=== PATIENT | female | born 1955 | race Caucasian/White ===

== ENCOUNTER → 2016-09-20 | Outpatient (CLI) | payer BC ==
--- NOTE | 2016-09-20 16:38 | NM ---
EXAMINATION: Nuclear medicine myocardial perfusion study with exercise stress test. HISTORY: Chest pain. PROCEDURE: Patient exercised according to Tam protocol for 5 minutes and 11 seconds and achieved maximal hear t rate of 152 beats per minute. Adequate exercise. Following intravenous administration of 27.5 mCi of technetium 99m sestamibi, stress SPECT images in cluding gating imaging was performed. FINDINGS: Stress myocardial SPECT images demonstrates mild to moderately decreased perfusion along the anterio r wall from the base to midportion, this is most likely breast attenuation artifact. Review of gated images demonstrates normal wall motion, contractility and wall thickening. The left ventricular ejection fraction is 77 %. The left ventricular chamber size is normal. IMPRESSION: 1. Decreased perfusion along the anterior wall, most likely breast attenuation artifact. If suspicio n is high and confirmation is needed consider rest imaging. 2. Normal ventricular chamber size and function with ejection fraction of 77 %.
--- NOTE | 2016-09-21 10:32 | PCM.PRNOTE ---
- Free Text/Narrative Note: Exercise MIBI Indication CP Sestamibi Tc99 25 MCi was given at the peak HR Patient was brought to the stress test lab in postabsorptive state verbal and paper consent was obtained from patient Vital signs at resting state blood pressure of 134/84 with a heart rate of 118 EKG shows sinus tachycardia, ST depression 1 mm V3-V6 Maximal heart rate of 152 and target heart rate is 118 Patient reached the target heart rate, completed stage II Tam protocol Peak blood pressure is 154/84 Total exercise time of 5.[address] depression V4-V6 at a peak heart rate no arrhythmia METS 7 No symptom of chest pain or feeling dizzy Impression Normal hemodynamics, normal chronotropic, poor exercise capacity, negative for ischemia on EKG Plan Nuclear portion pending
== END ==
LOC: MW.NM 12:37
PROVIDERS: ATTEND Internal Medicine
DX: R07.9 Chest pain, unspecified (principal)
CPT/HCPCS: 78451; 78451-26; 93017; A9500

== ENCOUNTER → 2016-10-03 | Outpatient (CLI) | payer BC ==
--- NOTE | 2016-10-10 19:38 | ECHO ---
The echocardiogram report can be seen in this patient's EMR in the Reports section. ALONDRA
== END ==
LOC: MW.US 13:08
PROVIDERS: ATTEND Internal Medicine
DX: R07.9 Chest pain, unspecified (principal)
CPT/HCPCS: 93306

== ENCOUNTER → 2016-10-06 | Outpatient (CLI) | payer BC ==
--- NOTE | 2016-12-05 13:38 | NM ---
EXAM DATE: 10/06/16 PATIENT'S AGE: 61 Addendum: Additional images were obtained at rest following the administration of 27.5 mCi of technetium 99m labeled sestamibi. Findings/impression: The perfusion at rest is similar to the stress images with likely breast attenuation artifact anteriorly. The ejection fraction at rest is 70%. No evidence of myocardial ischemia. EXAMINATION: Nuclear medicine myocardial perfusion study with exercise stress test. HISTORY: Chest pain. PROCEDURE: Patient exercised according to Tam protocol for 5 minutes and 11 seconds and achieved maximal heart rate of 152 beats per minute. Adequate exercise. Following intravenous administration of 27.5 mCi of technetium 99m sestamibi, stress SPECT images including gating imaging was performed. FINDINGS: Stress myocardial SPECT images demonstrates mild to moderately decreased perfusion along the anterior wall from the base to midportion, this is most likely breast attenuation artifact. Review of gated images demonstrates normal wall motion, contractility and wall thickening. The left ventricular ejection fraction is 77 %. The left ventricular chamber size is normal. IMPRESSION: 1. Decreased perfusion along the anterior wall, most likely breast attenuation artifact. If suspicion is high and confirmation is needed consider rest imaging. 2. Normal ventricular chamber size and function with ejection fraction of 77 %. MTDD
== END ==
LOC: MW.NM 08:05
PROVIDERS: ATTEND Internal Medicine
DX: R07.9 Chest pain, unspecified (principal)
CPT/HCPCS: 78451; 78451-26

== ENCOUNTER 2016-10-16 07:42 | Day surgery (SDC) | payer BC ==
[~2016-10-16 07:42] MED LIST: Lactated Ringers 1,000 ML IV SCH; Lidocaine 2% 5 ML SDV ONE; Midazolam 1 MG/ML 2 ML SDV ONE; Propofol 200 MG/20 ML SDV ONE; fentaNYL 250 MCG/5 ML SDV ONE
[2016-10-16] MEDS ORDERED: Sodium Chloride 0.9% 10 ML Syringe FLUSH PRN (07:59)
[2016-10-16] MEDS ORDERED: Sodium Chloride 0.9% 2.5 ML Syringe FLUSH PRN (07:59)
[2016-10-16] MEDS ORDERED: Enoxaparin 40 MG/0.4 ML Syringe SUBCUT ONE (08:02)
--- NOTE | 2016-10-16 08:23 | PCM.PREANE ---
Preanesthetic Assessment - Anesthesia/Transfusion/Family Hx Anesthesia History: Prior Anesthesia Without Reaction Family History of Anesthesia Reaction: No Transfusion History: No Prior Transfusion(s) - Review of Systems General: No Symptoms Pulmonary: No Symptoms Cardiovascular: No Symptoms Gastrointestinal: No symptoms Neurological: No Symptoms Other: Reports: None - Physical Assessment NPO Status Date: 10/15/16 O2 Sat by Pulse Oximetry: 98 Respiratory Rate: 18 Vital Signs: Last Vital Signs Temp 36.8 C 10/16/16 08:14 Pulse 72 10/16/16 08:14 Resp 18 10/16/16 08:14 BP 156/88 H 10/16/16 08:14 Pulse Ox 98 10/16/16 08:14 Height: 1.73 m Weight: 121.109 kg ASA Class: 2 Mental Status: Alert & Oriented x3 Airway Class: Mallampati = 2 Dentition: Reports: Normal Dentition ROM/Head Extension: Full Lungs: Clear to auscultation, Normal respiratory effort Cardiovascular: Regular Rate, Regular Rhythm - Lab Values: Laboratory Last Values WBC 8.51 K/uL (4.0-11.0) 10/16/16 08:02 RBC 4.79 M/uL (4.30-5.90) 10/16/16 08:02 Hgb 14.5 g/dL (12.0-16.0) 10/16/16 08:02 Hct 43.1 % (36.0-46.0) 10/16/16 08:02 MCV 90.0 fL (80.0-98.0) 10/16/16 08:02 MCH 30.3 pg (27.0-32.0) 10/16/16 08:02 MCHC 33.6 g/dL (31.0-37.0) 10/16/16 08:02 RDW Std Deviation 41.2 fl (28.0-62.0) 10/16/16 08:02 RDW Coeff of Narda 13 % (11.0-15.0) 10/16/16 08:02 Plt Count 214 K/uL (150-400) 10/16/16 08:02 MPV 10.60 fL (7.40-12.00) 10/16/16 08:02 Neut % (Auto) 54.0 % (48.0-80.0) 10/16/16 08:02 Lymph % (Auto) 33.7 % (16.0-40.0) 10/16/16 08:02 Ponce % (Auto) 8.1 % (0.0-15.0) 10/16/16 08:02 Eos % (Auto) 3.6 % (0.0-7.0) 10/16/16 08:02 Baso % (Auto) 0.6 % (0.0-1.5) 10/16/16 08:02 Neut # (Auto) 4.6 K/uL (1.4-5.7) 10/16/16 08:02 Lymph # (Auto) 2.9 K/uL (0.6-2.4) H 10/16/16 08:02 Ponce # (Auto) 0.7 K/uL (0.0-0.8) 10/16/16 08:02 Eos # (Auto) 0.3 K/uL (0.0-0.7) 10/16/16 08:02 Baso # (Auto) 0.1 K/uL (0.0-0.1) 10/16/16 08:02 Nucleated RBC % 0.0 /100WBC 10/16/16 08:02 Nucleated RBCs # 0 K/uL 10/16/16 08:02 - Allergies Allergies/Adverse Reactions: Allergies Allergy/AdvReac Type Severity Reaction Status Date / Time Milk Containing Products Allergy Diarrhea Verified 10/11/16 11:33 Penicillins Allergy Rash Verified 10/11/16 11:33 - Acknowledgements Anesthesia Type Planned: General Anesthesia Pt an Appropriate Candidate for the Planned Anesthesia: Yes Alternatives and Risks of Anesthesia Discussed w Pt/Guardian: Yes Pt/Guardian Understands and Agrees with Anesthesia Plan: Yes PreAnesthesia Questionnaire HEENT History: Reports: Impaired vision Other HEENT History: wears 1 contact Cardiovascular History: Reports: Hypertension Respiratory History: Reports: PE Other Respiratory History: May 2016, recently stopped Elequis Gastrointestinal History: Reports: GERD Genitourinary History: Reports: None [employer] History: Reports: Ectopic , Musculoskeletal History: Reports: Arthritis Neurological History: Reports: None Psychiatric History: Reports: None Endocrine/Metabolic History: Reports: Hypothyroidism Other Hematologic History: protein C and S abnormalities, 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, on aspirin chronically Immunologic History: Reports: None Oncologic (Cancer) History: Reports: None Dermatologic History: Reports: None - Past Surgical History Head Surgeries/Procedures: Reports: None HEENT Surgical History: Reports: None Cardiovascular Surgical History: Reports: None Respiratory Surgical History: Reports: None GI Surgical History: Reports: Cholecystectomy Female Surgical History: Reports: Other (see below) Other Female Surgeries/Procedures: salpingectomy for ruptured ectopic Endocrine Surgical History: Reports: None Neurological Surgical History: Reports: None Musculoskeletal Surgical History: Reports: None Oncologic Surgical History: Reports: None Dermatological Surgical History: Reports: None - SUBSTANCE USE Smoking Status *Q: Never Smoker Tobacco Use Within Last Twelve Months: No Recreational Drug Use History: No - HOME MEDS Home Medications: Home Meds Omeprazole Magnesium [Prilosec Otc] 10 mg PO ACBREAKFAST 10/22/15 [History] Metoprolol Succinate [Toprol XL] 50 mg PO BEDTIME 10/11/16 [History] - CURRENT (IN HOUSE) MEDS Current Meds: Current Medications Lactated Ringer's (Ringers, Lactated) 1,000 mls @ 125 mls/hr IV ASDIRECTED JANELL Last Admin: 10/16/16 08:16 Dose: 125 mls/hr Sodium Chloride (Saline Flush) 10 ml FLUSH ASDIRECTED PRN PRN Reason: Keep Vein Open Sodium Chloride (Saline Flush) 2.5 ml FLUSH ASDIRECTED PRN PRN Reason: Keep Vein Open Discontinued Medications Enoxaparin Sodium (Lovenox) 40 mg SUBCUT ONETIME ONE Stop: 10/16/16 08:03 Last Admin: 10/16/16 08:15 Dose: 40 mg Fentanyl (Sublimaze) Confirm Administered Dose 250 mcg .ROUTE .STK-MED ONE Stop: 10/16/16 07:27 Lidocaine (Xylocaine-Mpf 2%) Confirm Administered Dose 10 ml .ROUTE .STK-MED ONE Stop: 10/16/16 07:27 Midazolam HCl (Versed 1 Mg/Ml) Confirm Administered Dose 2 mg .ROUTE .STK-MED ONE Stop: 10/16/16 07:27 Propofol (Diprivan 20 Ml) Confirm Administered Dose 400 mg .ROUTE .STK-MED ONE Stop: 10/16/16 07:27 Preanesthetic Assessment - ANESTHESIA/TRANSFUSION/FAMILY HX Anesthesia/Transfusion History: No Prior Transfusion(s), Prior Anesthesia Family History of Anesthesia Reaction: No - PHYSICAL ASSESSMENT O2 Sat by Pulse Oximetry: 98 RR: 18 Vital Signs: Last Vital Signs Temp 36.8 C 10/16/16 08:14 Pulse 72 10/16/16 08:14 Resp 18 10/16/16 08:14 BP 156/88 H 10/16/16 08:14 Pulse Ox 98 10/16/16 08:14 Height: 1.73 m Weight: 121.109 kg - LAB Values: Laboratory Last Values WBC 8.51 K/uL (4.0-11.0) 10/16/16 08:02 RBC 4.79 M/uL (4.30-5.90) 10/16/16 08:02 Hgb 14.5 g/dL (12.0-16.0) 10/16/16 08:02 Hct 43.1 % (36.0-46.0) 10/16/16 08:02 MCV 90.0 fL (80.0-98.0) 10/16/16 08:02 MCH 30.3 pg (27.0-32.0) 10/16/16 08:02 MCHC 33.6 g/dL (31.0-37.0) 10/16/16 08:02 RDW Std Deviation 41.2 fl (28.0-62.0) 10/16/16 08:02 RDW Coeff of Narda 13 % (11.0-15.0) 10/16/16 08:02 Plt Count 214 K/uL (150-400) 10/16/16 08:02 MPV 10.60 fL (7.40-12.00) 10/16/16 08:02 Neut % (Auto) 54.0 % (48.0-80.0) 10/16/16 08:02 Lymph % (Auto) 33.7 % (16.0-40.0) 10/16/16 08:02 Ponce % (Auto) 8.1 % (0.0-15.0) 10/16/16 08:02 Eos % (Auto) 3.6 % (0.0-7.0) 10/16/16 08:02 Baso % (Auto) 0.6 % (0.0-1.5) 10/16/16 08:02 Neut # (Auto) 4.6 K/uL (1.4-5.7) 10/16/16 08:02 Lymph # (Auto) 2.9 K/uL (0.6-2.4) H 10/16/16 08:02 Ponce # (Auto) 0.7 K/uL (0.0-0.8) 10/16/16 08:02 Eos # (Auto) 0.3 K/uL (0.0-0.7) 10/16/16 08:02 Baso # (Auto) 0.1 K/uL (0.0-0.1) 10/16/16 08:02 Nucleated RBC % 0.0 /100WBC 10/16/16 08:02 Nucleated RBCs # 0 K/uL 10/16/16 08:02 - ALLERGIES Allergies/Adverse Reactions: Allergies Allergy/AdvReac Type Severity Reaction Status Date / Time Milk Containing Products Allergy Diarrhea Verified 10/11/16 11:33 Penicillins Allergy Rash Verified 10/11/16 11:33
[2016-10-16] MEDS ORDERED: ePHEDrine 50 MG/ML SDV ONE (08:46)
--- NOTE | 2016-10-16 09:02 | PCM.OPNOTE ---
- General Post-Op/Procedure Note Date of Surgery/Procedure: 10/16/16 Operative Procedure(s): Operative hysteroscopy, polypectomy, curretage of endometrium Pre Op Diagnosis: postmenopausal bleeding Post-Op Diagnosis: Same Anesthesia Technique: General LMA Primary Surgeon: Nataly James Fluid Replacement, Intraop: 1,000 (Fluid deficit 90 ml Crystalloid/hysteroscopy) EBL in mLs: 10 Complications: none known Condition: Good Free Text/Narrative:: Dictation [id number]
[2016-10-16] MEDS ORDERED: fentaNYL 100 MCG/2 ML SDV IVPUSH PRN (09:09)
[2016-10-16] MEDS ORDERED: Ondansetron 4 MG/2 ML SDV ONE (09:14)
--- NOTE | 2016-10-16 09:33 | PCM.POSTAN ---
POST ANESTHESIA ASSESSMENT - MENTAL STATUS Mental Status: alert, oriented - RESPIRATORY Respiratory Status: respiratory rate WNL, airway patent - CARDIOVASCULAR CV Status: pulse rate WNL, blood pressure stable - GASTROINTESTINAL GI Status: no symptoms - PAIN Pain Score: 2 - POST OP HYDRATION Hydration Status: adequate & stable
[2016-10-16 09:44] VITALS: BP 132/64
--- NOTE | 2016-10-16 10:05 | PCM48HPAN ---
Post Anesthesia Note - EVALUATION WITHIN 48HRS OF ANESTHETIC Vital Signs in Normal Range: Yes Patient Participated in Evaluation: Yes Respiratory Function Stable: Yes Airway Patent: Yes Cardiovascular Function Stable: Yes Hydration Status Stable: Yes Pain Control Satisfactory: Yes Nausea and Vomiting Control Satisfactory: Yes Mental Status Recovered: Yes
--- NOTE | 2016-10-16 13:08 | OR ---
SURGEON: Nataly James M.D. DATE OF PROCEDURE: 10/16/2016 PREOPERATIVE DIAGNOSIS: Postmenopausal bleeding. POSTOPERATIVE DIAGNOSIS: Postmenopausal bleeding. PROCEDURE: Operative hysteroscopy with polypectomy, curettage of endometrium. ESTIMATED BLOOD LOSS: 10 mL. ANESTHESIA: General LMA. FLUIDS: Approximately 1000 mL crystalloid fluid deficit and 90 mL crystalloid for hysteroscopy. COMPLICATIONS: None known. DISPOSITION: The patient to PACU in stable condition. INDICATIONS: Emmie is a 61-year-old female, who has had ongoing difficulties with intermittent postmenopausal bleeding. Endometrial biopsy was benign but sonohysterogram does reveal a 3 cm broad-based fundal polyp. Therefore, at this time, she would like to proceed with surgical intervention from hysteroscopy for polypectomy. The risks of the procedure have been discussed and proper consent obtained. PROCEDURE IN DETAIL: The patient was taken to the operating room, where she underwent general LMA. She did receive Lovenox subcu prophylactically given her recent history of PE and protein C and protein S deficiency. Once the patient was under general LMA, was placed in modified dorsal lithotomy position, prepped and draped in the usual sterile fashion. SCDs to lower extremities. Bladder was drained. Time-out was performed. Speculum was introduced in the vagina. Anterior lip of cervix grasped with an Allis clamp. The cervix was gently dilated to 5 mm. The 5 mm hysteroscope was now introduced using normal saline as the distention media. Uterine cavity was able to be visualized. Left and right ostia were visualized. There was noted to be a broad-based rather large fundal polyp extending the entire length of the uterine cavity. Photographs were taken. The MyoSure was now introduced. Polypectomy was performed using the MyoSure device. The polyp was removed in toto, and the endometrium was shaved down until it was flushed. Endometrial cavity was now able to be fully visualized. No other polyps were evident. MyoSure was removed as well as hysteroscope. Gentle curettage of the endometrium was now performed. Hemostasis appeared evident. All specimen to pathology. All instruments removed from the vagina. The patient tolerated the procedure well. Instrument and sponge counts correct x2. HENRIQUE / CHITRAL /[id number]
== END 2016-10-16 10:20 | disposition home or self-care (01) ==
LOC: MW.SDS 07:42
PROVIDERS: ATTEND Obstetrics & Gynecology
PROC: 0UB98ZZ Excision of Uterus, Via Natural or Artificial Opening Endoscopic (ICD-10-PCS; principal; 2016-10-16)
PROC: 0UDB8ZZ Extraction of Endometrium, Via Natural or Artificial Opening Endoscopic (ICD-10-PCS; 2016-10-16)
DX: N84.0 Polyp of corpus uteri (principal); I10 Essential (primary) hypertension; E03.9 Hypothyroidism, unspecified; M19.90 Unspecified osteoarthritis, unspecified site; K21.9 Gastro-esophageal reflux disease without esophagitis; Z86.711 Personal history of pulmonary embolism; Z88.0 Allergy status to penicillin; Z91.011 Allergy to milk products; Z79.82 Long term (current) use of aspirin; Z79.899 Other long term (current) drug therapy; Z90.49 Acquired absence of other specified parts of digestive tract; Z90.79 Acquired absence of other genital organ(s); Z68.41 Body mass index [BMI] 40.0-44.9, adult
CPT/HCPCS: 36415; 58558; 85025; J1650; J2250; J2405; J3010; J7120; 00952; 88305; J2704

== ENCOUNTER 2023-02-06 06:34 | Day surgery (SDC) | payer MEDICARE, OTHER ==
[~2023-02-06 06:34] MED LIST changes: +Clindamycin Phosphate in D5W 50 ML IV ONE; -Lactated Ringers 1,000 ML IV SCH; -Lidocaine 2% 5 ML SDV ONE; -Midazolam 1 MG/ML 2 ML SDV ONE; -Propofol 200 MG/20 ML SDV ONE; +Sodium Chloride 0.9% 10 ML Syringe FLUSH PRN; +Sodium Chloride 0.9% 2.5 ML Syringe FLUSH PRN; +Sodium Chloride 0.9% 20 ML SDV IV PRN; +ceFAZolin 2 GM in Sodium Chloride 0.9% 50 ML IV ONE; -fentaNYL 250 MCG/5 ML SDV ONE
[2023-02-06] MEDS: Lactated Ringers 1,000 ML IV SCH ×2 (07:00→11:50)
[2023-02-06] MEDS ORDERED: Ondansetron 4 MG/2 ML SDV IVPUSH PRN ×2 (07:12→10:21)
[2023-02-06] MEDS ORDERED: Metoclopramide 10 MG/2 ML SDV IVPUSH PRN (07:12)
[2023-02-06] MEDS ORDERED: Albuterol 0.083% 2.5 MG/3 ML Neb Soln NEB PRN (07:12)
[2023-02-06] MEDS ORDERED: droPERidol 5 MG/2 ML SDV IVPUSH PRN (07:12)
[2023-02-06] MEDS ORDERED: HYDROmorphone 1 MG/ML Syringe IVPUSH PRN (07:12)
[2023-02-06] MEDS ORDERED: fentaNYL 50 MCG/ML SDV IVPUSH PRN (07:12)
[2023-02-06] MEDS ORDERED: Naloxone 0.4 MG/ML SDV IVPUSH PRN (07:12)
[2023-02-06] MEDS ORDERED: Morphine 2 MG/ML SYRINGE IVPUSH PRN (07:12)
[2023-02-06] MEDS ORDERED: fentaNYL 100 MCG/2 ML SDV ONE (07:15)
[2023-02-06] MEDS ORDERED: Propofol 200 MG/20 ML SDV ONE (07:15)
[2023-02-06] MEDS ORDERED: Rocuronium Bromide 50 MG/5 ML Syringe ONE ×2 (07:17→09:06)
[2023-02-06] MEDS ORDERED: Lidocaine 2% 5 ML SDV ONE (07:17)
[2023-02-06] MEDS ORDERED: Ondansetron 4 MG/2 ML SDV ONE (07:17)
[2023-02-06] MEDS ORDERED: Sugammadex Sodium 200 MG/2 ML VIAL ONE ×2 (07:17→09:06)
[2023-02-06] MEDS ORDERED: Dexamethasone 4 MG/ML 5 ML MDV ONE (07:17)
[2023-02-06] MEDS ORDERED: Ketorolac 30 MG/ML SDV ONE (07:17)
[2023-02-06] MEDS ORDERED: Phenylephrine HCl 0.5 MG/5 ML AMP ONE (07:19)
[2023-02-06] MEDS ORDERED: ePHEDrine 50 MG/ML SDV ONE (07:20)
[2023-02-06] MEDS ORDERED: Water For Injection, Sterile 20 ML ONE ×2 (07:22→09:12)
[2023-02-06] MEDS ORDERED: Ropivacaine 0.5% 5 MG/ML 30 ML SDV ONE (07:28)
[2023-02-06] MEDS ORDERED: Bupivacaine 0.25% 30 ML SDV ONE (07:30)
[2023-02-06] MEDS ORDERED: Methylene Blue 1% 10 ML SDV ONE (07:30)
[2023-02-06] MEDS ORDERED: Gentamicin Pediatric 10 MG/ML 2 ML SDV IV ONE (07:47)
[2023-02-06] MEDS ORDERED: Enoxaparin 40 MG/0.4 ML Syringe SUBCUT ONE (07:54)
[2023-02-06] MEDS ORDERED: GENTAMICIN IV ONE (08:15)
[2023-02-06] MEDS ORDERED: Clindamycin Phosphate in D5W 300 MG in Premix Bag 1 BAG IV SCH ×2 (08:15)
[2023-02-06] MEDS ORDERED: SODIUM CHLORIDE 0.9% IV ONE (08:15)
[2023-02-06] MEDS ORDERED: Clindamycin Phosphate in D5W 600 MG in Premix Bag 1 BAG IV SCH ×2 (08:15)
[2023-02-06] MEDS ORDERED: Dexmedetomidine 200 MCG/2 ML SDV ONE (09:12)
[2023-02-06] MEDS ORDERED: Clindamycin Phosphate in D5W 900 MG in Premix Bag 1 BAG IV SCH ×2 (09:23)
[2023-02-06] MEDS ORDERED: Fluorescein 5 ML Vial ONE (09:27)
[2023-02-06] MEDS ORDERED: Furosemide 40 MG/4 ML VIAL ONE (09:27)
[2023-02-06] MEDS ORDERED: Promethazine 25 MG/ML SDV IM PRN (10:21)
[2023-02-06] MEDS ORDERED: Acetaminophen/oxyCODONE 325-5 MG Tab PO PRN (10:21)
[2023-02-06] MEDS ORDERED: Morphine 4 MG/ML Syringe IVPUSH PRN (10:21)
[2023-02-06] MEDS ORDERED: Ketorolac 30 MG/ML SDV IVPUSH ONE (10:21)
[2023-02-06] MEDS ORDERED: Lactated Ringers 1,000 ML IV SCH (10:30)
[2023-02-06] MEDS: Acetaminophen/oxyCODONE 325-5 MG Tab PO PRN ×3 (13:22→21:45)
[2023-02-06] MEDS ORDERED: Metoprolol Succinate 50 MG Tab.ER PO SCH (21:00)
[2023-02-06] MEDS: Docusate Sodium 100 MG Cap PO SCH (21:45)
[2023-02-06] MEDS ORDERED: CETIRIZINE 10 MG PO SCH ×2 (22:00→22:51)
[2023-02-06] MEDS ORDERED: Pantoprazole 40 MG Tab.CR PO SCH (22:50)
[2023-02-06] MEDS ORDERED: Pantoprazole 40 MG Tab.CR**PT OWN PO SCH (23:00)
[2023-02-07] MEDS: Docusate Sodium 100 MG Cap PO SCH (00:51)
[2023-02-07] MEDS: Acetaminophen/oxyCODONE 325-5 MG Tab PO PRN (01:45)
[2023-02-07 06:48] LABS: BASOPHILS PERCENT AUTO 0.1 % (0.0-1.5); HEMATOCRIT 39.1 % (36.0-46.0); HEMOGLOBIN 13.4 g/dL (12.0-16.0); LYMPHOCYTES ABSOLUTE AUTO 2.2 K/uL (0.6-2.4); LYMPHOCYTES PERCENT AUTO 16.1 % (16.0-40.0); MEAN CORPUSCULAR HEMOGLOBIN 30.9 pg (27.0-32.0); MEAN CORPUSCULAR HGB CONC 34.3 g/dL (31.0-37.0); MEAN CORPUSCULAR VOLUME 90.1 fL (80.0-98.0); MONOCYTES PERCENT AUTO 7.3 % (0.0-15.0); NEUTROPHILS ABSOLUTE AUTO 10.3 K/uL (1.4-5.7); NEUTROPHILS PERCENT AUTO 76.5 % (48.0-80.0); NRBC ABSOLUTE 0 K/uL; PLATELET COUNT,PLT 229 K/uL (150-400); RED BLOOD CELL COUNT 4.34 M/uL (4.30-5.90); WHITE BLOOD CELL COUNT,WBC 13.47 K/uL (4.0-11.0)
[2023-02-07 07:02] LABS: CALCIUM 8.7 mg/dL (8.5-10.1); CARBON DIOXIDE,CO2 25.2 mmol/L (21.0-32.0); CREATININE 1.2 mg/dL (0.6-1.0); EST CRCL DRUG DOSING (CG) 44.63 mL/min; POTASSIUM,K 4.4 mmol/L (3.5-5.1)
[2023-02-07] MEDS ORDERED: Levothyroxine 125 MCG Tab PO SCH (07:30)
[2023-02-07] MEDS ORDERED: Enoxaparin 40 MG/0.4 ML Syringe SUBCUT SCH (08:00)
[2023-02-07 13:44] VITALS: BP 136/83; PULSE 70
[2023-02-07] MEDS ORDERED: Pantoprazole 40 MG Tab.CR PO SCH (21:00)
[2023-02-07] MEDS ORDERED: Cetirizine 10 MG Tab PO SCH (21:00)
[2023-02-07] MEDS ORDERED: CETIRIZINE 10 MG PO SCH (21:00)
[2023-02-07] MEDS ORDERED: Metoprolol Succinate 50 MG Tab.ER *PT OWN MED PO SCH (21:00)
[2023-02-07] MEDS ORDERED: Pantoprazole 40 MG Tab.CR *PT OWN MED PO SCH (21:00)
== END 2023-02-07 11:00 | disposition home or self-care (01) ==
LOC: MW.SDS 06:34 → MW.OB 10:25 → MW.SDS 02-07 11:00
PROVIDERS: ATTEND Obstetrics & Gynecology
DX: N95.0 Postmenopausal bleeding (principal); D25.2 Subserosal leiomyoma of uterus; N84.0 Polyp of corpus uteri; N80.03 Adenomyosis of the uterus; N83.202 Unspecified ovarian cyst, left side; N83.201 Unspecified ovarian cyst, right side; N83.8 Other noninflammatory disorders of ovary, fallopian tube and broad ligament; I10 Essential (primary) hypertension; M19.90 Unspecified osteoarthritis, unspecified site; E03.9 Hypothyroidism, unspecified; K21.9 Gastro-esophageal reflux disease without esophagitis; K58.9 Irritable bowel syndrome, unspecified; Z79.899 Other long term (current) drug therapy; Z79.890 Hormone replacement therapy; Z90.49 Acquired absence of other specified parts of digestive tract; Z79.82 Long term (current) use of aspirin; Z90.79 Acquired absence of other genital organ(s); Z88.0 Allergy status to penicillin; Z88.1 Allergy status to other antibiotic agents; Z91.040 Latex allergy status; Z88.8 Allergy status to other drugs, medicaments and biological substances
CPT/HCPCS: 36415; 57282; 58552; 64488; 80048; 85025; A9270; J0131; J1100; J1170; J1650; J1940; J2370; J2704; J2795; J3010; J3490; J7030; J7120; Q9968; 00944; J1885; J2405

== ENCOUNTER 2023-04-05 09:18 | Day surgery (SDC) | payer MEDICARE, OTHER ==
[~2023-04-05 09:18] MED LIST changes: -Clindamycin Phosphate in D5W 50 ML IV ONE; +Dexmedetomidine 200 MCG/2 ML SDV ONE; +Lactated Ringers 1,000 ML IV SCH; +Lidocaine 2% 5 ML SDV ONE; -ceFAZolin 2 GM in Sodium Chloride 0.9% 50 ML IV ONE; +propofoL 50 ML ONE
[2023-04-05] MEDS ORDERED: Propofol 200 MG/20 ML SDV ONE (10:43)
[2023-04-05 11:18] VITALS: BP 119/68; PULSE 68
== END 2023-04-05 11:30 | disposition home or self-care (01) ==
LOC: MW.SDS 09:18
PROVIDERS: ATTEND Surgery
DX: Z12.11 Encounter for screening for malignant neoplasm of colon (principal); K29.50 Unspecified chronic gastritis without bleeding; D12.3 Benign neoplasm of transverse colon; K44.9 Diaphragmatic hernia without obstruction or gangrene; K57.30 Diverticulosis of large intestine without perforation or abscess without bleeding; Z80.0 Family history of malignant neoplasm of digestive organs; I10 Essential (primary) hypertension; E78.00 Pure hypercholesterolemia, unspecified; E03.9 Hypothyroidism, unspecified; K58.9 Irritable bowel syndrome, unspecified; Z88.0 Allergy status to penicillin; Z88.1 Allergy status to other antibiotic agents; Z88.8 Allergy status to other drugs, medicaments and biological substances; Z91.011 Allergy to milk products; Z91.040 Latex allergy status; Z79.82 Long term (current) use of aspirin; Z79.890 Hormone replacement therapy; Z79.899 Other long term (current) drug therapy; Z90.49 Acquired absence of other specified parts of digestive tract; Z98.890 Other specified postprocedural states
CPT/HCPCS: 43239; 45380; 88305; 88342; J2704; J7120; 00813; J3490